=== PATIENT | male | born 1980 | race Caucasian/White ===

== ENCOUNTER 2018-09-05 11:49 | Emergency (ER) | payer OTHER ==
--- NOTE | 2018-09-05 12:19 | EDPHY ---
HPI/HX/ROS/PE/MDM Narrative: CHIEF COMPLAINT: Inguinal pain/swelling HPI: This patient is a 38-year-old male who is generally healthy. He presents complaining of bilateral discomfort in his groin bilaterally. This began Monday morning after working out, initially noted while he was in the shower. He endorses swelling. No dysuria. No penile discharge. He additionally endorses a rash that he initially thought was related to an ingrown hair. He denies any history of STIs. He has history of rectal fistula surgery two years ago, unknown cause. No other abdominal surgeries. No testicular pain. No fever. No trauma. No recent illness or further complaints. REVIEW OF SYSTEMS: A comprehensive 10 system review of systems is otherwise negative aside from elements mentioned in the history of present illness and medical decision making. PMH: Fistula repair. SOCIAL HISTORY: , at bedside. Lives in [place]. Does not abuse tobacco, drugs, or alcohol. PHYSICAL EXAM: General:Patient is alert, in no acute distress. ENT:Eyes are normal to inspection. ENT inspection normal. Neck: Normal inspection. Full range of motion. Respiratory:No respiratory distress. Breath sounds normal bilaterally. Cardiovascular: Regular rate and rhythm. Strong peripheral pulses. Normal cap refill. Abdomen:The abdomen is nontender to palpation. There are no peritoneal signs. There are normal bowel sounds. Genitourinary: Tenderness, swelling, and erythema to inguinal and suprapubic region bilaterally. A rash is present on the right base of penis which consists of a cluster of small painful violaceous lesions. No distinct fluid collections are seen. No cellulitis. Perinuem normal. Back: Normal to inspection. No tenderness to palpation. Skin: Normal color. Warm and dry. Extremities: Normal appearance. Full range of motion. Neuro: Oriented x3. Normal motor function. Normal sensory function. ED Course: 38 y/o male presents with tenderness, swelling, and erythema to the inguinal and suprapubic regions bilaterally. Plan for labs including CBC, chemistries, UA , and tests for GC/chlamydia, HSV. Labs largely unremarkable, UA negative for UTI. Sexually transmitted infection tests pending at this time. Reassessed. Discussed laboratory studies as well as concerns for STI. The patient and his adamantly deny any new recent sexual contacts. See [facility] for details. Plan to provide prescription for Valacyclovir and Grandin for symptom relief. Plan for CT pelvis to r/o hernia. MDM: This patient presents with painful bilateral inguinal swelling in the setting of new painful genital rash. This seems very suspicious to me for genital herpes. Patient adamantly denies new sexual contacts as does his . She has a history of oral "cold sores" so I think it possible that this may be the source since neither of them report history of prior genital rash. Patient was very concerned that inguinal swelling represents a hernia so CT performed. Patient will be started on valacyclovir and will need to follow-up with ID or PCP to obtain serologic tests. As no fluid really present, I do not think swab will be helpful. - Data Points Imaging: Discussed imaging studies w/ call taker Radiologist Laboratory Results: Laboratory Results 09/05/18 12:30 09/05/18 12:30 09/05/18 09/05/18 09/05/18 12:30 12:30 12:30 WBC RBC Hgb Hct MCV MCH MCHC RDW Plt Count MPV Neut % (Auto) Lymph % (Auto) [place] % (Auto) Eos % (Auto) Baso % (Auto) Nucleat RBC Rel Count Absolute Neuts (auto) Absolute Lymphs (auto) Absolute Monos (auto) Absolute Eos (auto) Absolute Basos (auto) Absolute Nucleated RBC Immature Gran % Immature Gran # Sodium Potassium Chloride Carbon Dioxide Anion Gap BUN Creatinine Estimated GFR Glucose Calcium Urine Color PALE YELLOW Urine Appearance CLEAR Urine pH 5.0 (5.0-7.5) Ur Specific [place] 1.011 (1.002-1.030) Urine Protein NEGATIVE (NEGATIVE) Urine Ketones NEGATIVE (NEGATIVE) Urine Blood NEGATIVE (NEGATIVE) Urine Nitrate NEGATIVE (NEGATIVE) Urine Bilirubin NEGATIVE (NEGATIVE) Urine Urobilinogen NEGATIVE EU EU (0.2-1.0) Ur Leukocyte Esterase NEGATIVE (NEGATIVE) Urine Glucose NEGATIVE (NEGATIVE) C.trachomatis RNA (TMA) Pending HSV I&II IgM Ab Pending HSV I IgG Ab Pending HSV II IgG Pending N.gonorrhoeae RNA (TMA) Pending 09/05/18 09/05/18 12:30 12:30 WBC 5.14 10^3/uL 10^3/uL (3.80-9.50) RBC 5.64 10^6/uL 10^6/uL (4.40-6.38) Hgb 17.5 g/dL g/dL (13.7-17.5) Hct 49.1 % % (40.0-51.0) MCV 87.1 fL fL (81.5-99.8) MCH 31.0 pg pg (27.9-34.1) MCHC 35.6 g/dL g/dL (32.4-36.7) RDW 12.9 % % (11.5-15.2) Plt Count 226 10^3/uL 10^3/uL (150-400) MPV 9.2 fL fL (8.7-11.7) Neut % (Auto) 47.4 % % (39.3-74.2) Lymph % (Auto) 41.1 % % (15.0-45.0) [place] % (Auto) 10.3 % % (4.5-13.0) Eos % (Auto) 0.6 % % (0.6-7.6) Baso % (Auto) 0.4 % % (0.3-1.7) Nucleat RBC Rel Count 0.0 % % (0.0-0.2) Absolute Neuts (auto) 2.44 10^3/uL 10^3/uL (1.70-6.50) Absolute Lymphs (auto) 2.11 10^3/uL 10^3/uL (1.00-3.00) Absolute Monos (auto) 0.53 10^3/uL 10^3/uL (0.30-0.80) Absolute Eos (auto) 0.03 10^3/uL 10^3/uL (0.03-0.40) Absolute Basos (auto) 0.02 10^3/uL 10^3/uL (0.02-0.10) Absolute Nucleated RBC 0.00 10^3/uL 10^3/uL (0-0.01) Immature Gran % 0.2 % % (0.0-1.1) Immature Gran # 0.01 10^3/uL 10^3/uL (0.00-0.10) Sodium 140 mEq/L mEq/L (135-145) Potassium 4.2 mEq/L mEq/L (3.5-5.2) Chloride 102 mEq/L mEq/L (97-110) Carbon Dioxide 25 mEq/l mEq/l (22-31) Anion Gap 13 mEq/L mEq/L (6-14) BUN 14 mg/dL mg/dL (7-23) Creatinine 0.8 mg/dL mg/dL (0.7-1.3) Estimated GFR > 60 Glucose 88 mg/dL mg/dL (70-100) Calcium 10.5 mg/dL H mg/dL (8.5-10.4) Urine Color Urine Appearance Urine pH Ur Specific [place] Urine Protein Urine Ketones Urine Blood Urine Nitrate Urine Bilirubin Urine Urobilinogen Ur Leukocyte Esterase Urine Glucose C.trachomatis RNA (TMA) HSV I&II IgM Ab HSV I IgG Ab HSV II IgG N.gonorrhoeae RNA (TMA) Medications Given: Discontinued Medications Oxycodone/Acetaminophen (Percocet 5/325) 1 tab PO EDNOW ONE Stop: 09/05/18 12:30 Last Admin: 09/05/18 12:35 Dose: 1 tab General Time Seen by Provider: 09/05/18 12:10 Initial Vital Signs: Initial Vital Signs Temperature (C) 36.5 C 09/05/18 11:55 Heart Rate 75 09/05/18 11:55 Respiratory Rate 16 09/05/18 11:55 Blood Pressure 151/92 H 09/05/18 11:55 O2 Sat (%) 95 09/05/18 11:55 O2 Delivery Mode Room Air Allergies/Adverse Reactions: No Known Allergies Allergy (Unverified 09/05/18 11:55) Home Medications: Medication Instructions Recorded Hydrocodone/APAP 5/325 [Grandin 1 - 2 tab PO Q6H PRN #14 tab 09/05/18 5/325 (*)] Valacyclovir HCl [Valtrex] 1,000 mg PO TID #21 tab 09/05/18 Departure - Departure Disposition: Home, Routine, Self-Care Clinical Impression: Rash of genitalia Condition: Good Instructions: Genital Herpes Simplex (ED) Additional Instructions: Follow-up with your primary care physician and/or infectious disease specialist within 1 week for follow-up. Call back to the emergency department in approximately 48-72 hours to obtain the results of your testing. No sexual contact until tests have resulted. Return to the emergency department for fever , severe pain, worsening swelling or other concerns. Referrals: KIP EDLAROSA [Primary Care Provider] - As per Instructions Hiram Pederson MD [Medical Doctor] - As per Instructions Prescriptions: Hydrocodone/APAP 5/325 [Grandin 5/325 (*)] 1 - 2 tab PO Q6H PRN #14 tab PRN Reason: Pain, Severe Valacyclovir HCl [Valtrex] 1,000 mg PO TID #21 tab Report Scribed for: Arnaldo Mejia Report Scribed by: Allison Freeman Date of Report: 09/05/18 Time of Report: 14:07 Physician Review and Approval Statement: Portions of this note were transcribed by an ED scribe. I personally performed the history, physical exam, and medical decision making; and confirm the accuracy of the information in the transcribed note.
[2018-09-05] MEDS ORDERED: OXYCODONE/APAP 5/325 TAB PO ONE (12:29)
[2018-09-05 12:46] LABS: PLATELET COUNT 226 10^3/uL (150-400)
[2018-09-05 15:38] VITALS: BP 141/84
[2018-09-06 11:59] LABS: GC AMPLIFICATION GENPROBE NEGATIVE (NEGATIVE)
== END 2018-09-05 15:38 | disposition home or self-care (01) ==
DX: R21 Rash and other nonspecific skin eruption (principal)